=== PATIENT | male | born 1965 | race Caucasian/White ===

== ENCOUNTER 2016-11-05 01:55 | Emergency (ER) | payer OTHER ==
[2016-11-05] MEDS ORDERED: ALBUTEROL SO4 2.5/IPRATROPIUM 0.5 INH SOL 3 ML VIAL.NEB. NEB ONE ×2 (02:07→02:08)
[2016-11-05] MEDS ORDERED: CYCLOBENZAPRINE HCL 10 MG TABLET (FP) PO ONE (02:07)
[2016-11-05] MEDS ORDERED: KETOROLAC TROMETHAMINE 60 MG/2 ML VIAL IM ONE (02:07)
[2016-11-05] MEDS ORDERED: CYCLOBENZAPRINE HCL 10 MG TABLET (FP) ONE (02:08)
[2016-11-05] MEDS ORDERED: KETOROLAC TROMETHAMINE 60 MG/2 ML VIAL ONE (02:08)
--- NOTE | 2016-11-05 02:10 | PDOC ---
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 Patient said that he works at [employer] and one of the residents tried to elope so he chased after him and in chasing after him he said the ground was uneven and he steve his neck and back and now comes in complaining of acute exacerbation of his chronic neck and back pain as well as some difficulty breathing. Patient said that he has asthma and his asthma is causing him to have difficulty breathing. Patient denies any new neurological complaints. Patient did not take anything for that his neck and back pain. PAST MEDICAL HISTORY: no significant history PAST SURGICAL HISTORY: no significant history FAMILY HISTORY: no pertinant history SOCIAL HISTORY: Pt lives with family and is employed. MEDICATIONS: reviewed ALLERGIES: As per nursing notes Review of Systems General: No fevers or chills, no weakness, no weight loss HEENT: No change in vision. No sore throat,. No ear pain CardioVascular: No chest pain or shortness of breath Respiratory+ cough and wheezing Gastrointestinal: no nausea, vomitting, diarrhea or constipation, No rectal bleeding Genitourinary: No dysuria, hematuria, or frequency Musculoskeletal: Neck and back pain Neurologic: No headache, vertigo, dizziness or loss of consciousness Psychiatric: nor depression Skin: No rashes or easy bruising Endocrine: no increased thirst or abnormal weight change Allergic: no skin or latex allergy All other systems reviewed and normal Exam: General: Well-nourished well-developed individual, no acute distress HEENT: Throat: Normal, tonsils normal, no erythema or exudate Neck: Supple, no meningeal signs, no lymphadenopathy Cervical spine: There is pain and tenderness on palpation lateral paraspinal area mid cervical spine. There is decreased range of motion secondary to the pain. Eyes::Pupils equal reactive and round, extraocular motion intact Chest: Nontender to palpation Cardiac: S1-S2 normal, regular rate and rhythm, no murmurs rubs or gallops Respiratory: Mild expiratory wheezing bilateral Abdomen: Soft, nondistended, normal bowel sounds, nontender to palpation diffusely Back: There is bilateral. Spinal spasm of the upper lumbar spine area. There is decreased range of motion secondary to spasm and pain. 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 Patient also came in complaining of exacerbation of his asthma. Patient given a DuoNeb with improvement of his asthma symptoms and Flexeril for his neck and back pain. Patient has pain medication at home that he can take. Patient was told to take the rest of the night off and follow-up with his doctor tomorrow if unable to return to work tomorrow 11/05/16 02:27 Past History - Past Medical History Allergies/Adverse Reactions: Allergies Allergy/AdvReac Type Severity Reaction Status Date / Time No Known Drug Allergies Allergy Verified 11/05/16 01:57 Home Medications: Ambulatory Orders Levothyroxine [Synthroid -] 150 mcg PO DAILY 10/23/11 BUPROPion HCL "SR" [Wellbutrin Sr -] 150 mg PO BID 09/23/13 Losartan Potassium 320 mg PO HS 12/24/15 Metoprolol Succinate [Toprol XL -] 25 mg PO DAILY 07/06/16 Prednisone [Deltasone -] 60 mg PO DAILY #12 tablet 07/09/16 Ranitidine HCl [Zantac] 150 mg PO BID PRN #14 tablet 07/09/16 Cyclobenzaprine HCl [Flexeril -] 10 mg PO TID #21 tablet 11/05/16 Anemia: No Asthma: No Cancer: No Cardiac Disorders: No CVA: No COPD: No CHF: No Dementia: No Diabetes: No GI Disorders: Yes (ACID REFLUX) Disorders: No HTN: Yes Hypercholesterolemia: Yes Liver Disease: No Psychiatric Problems: Yes Seizures: No Thyroid Disease: Yes (HYPO) - Surgical History Abdominal Surgery: No Appendectomy: No Cardiac Surgery: No Cholecystectomy: No Lung Surgery: No Neurologic Surgery: Yes (DISCETOMY TIMES THREE) Orthopedic Surgery: Yes (BILAT UNI-KNEE) - Immunization History Td Vaccination: Yes Immunization Up to Date: Yes - Psycho/Social/Smoking Cessation Hx Anxiety: No Suicidal Ideation: No Smoking Status: No Smoking History: Never smoked Years of Tobacco Use: 0 Have you smoked in the past 12 months: No Number of Cigarettes Smoked Daily: 0 Cigars Per Day: 0 Hx Alcohol Use: No Drug/Substance Use Hx: No Substance Use Type: None Hx Substance Use Treatment: Yes (ALCOHOL/COCAINE 2000) *DC/Admit/Observation/Transfer Diagnosis at time of Disposition: Chronic neck and back pain, Asthma exacerbation - Discharge Dispostion Disposition: HOME Condition at time of disposition: Stable Admit: No - Prescriptions Prescriptions: Cyclobenzaprine HCl [Flexeril -] 10 mg PO TID #21 tablet - Patient Instructions Additional Instructions: Continue to take your pain medications as prescribed.. Take flexeril one tablet 3 times a day as needed for spasm of neck and back. Do not return to work tonight go home and rest. Use your inhaler for your asthma 2 puffs as often as every 4-6 hours as needed. Return to the emergency department immediately with ANY new, persistent or worsening symptoms. Continue any medications as previously prescribed by your physician. You should follow up with your primary doctor as soon as possible regarding today's emergency department visit. . Please make sure your doctor reviews the results of your emergency evaluation. Thank you for coming to the Emergency Department today for your care. It was a pleasure to see you today. Please note that your evaluation is INCOMPLETE until you follow-up with your doctor.
[2016-11-05 02:14] VITALS: BP 118/81; PULSE 100; TEMP 97.8; BMI 41.3
== END 2016-11-05 02:26 | disposition home or self-care (01) ==
LOC: FER 01:55
PROC: 3E0F7GC Introduction of Other Therapeutic Substance into Respiratory Tract, Via Natural or Artificial Opening (ICD-10-PCS; principal; 2016-11-05)
PROC: 3E0233Z Introduction of Anti-inflammatory into Muscle, Percutaneous Approach (ICD-10-PCS; 2016-11-05)
DX: J45.901 Unspecified asthma with (acute) exacerbation (principal); G89.29 Other chronic pain; K21.9 Gastro-esophageal reflux disease without esophagitis; E03.9 Hypothyroidism, unspecified; E78.00 Pure hypercholesterolemia, unspecified; I10 Essential (primary) hypertension
CPT/HCPCS: 99281-25

== ENCOUNTER 2016-12-20 09:05 | Emergency (ER) | payer OTHER ==
[2016-12-20 09:19] VITALS: BP 125/98; PULSE 86; TEMP 97.6; BMI 31.2
[2016-12-20] MEDS ORDERED: KETOROLAC TROMETHAMINE 60 MG/2 ML VIAL IM ONE (09:29)
[2016-12-20] MEDS ORDERED: CYCLOBENZAPRINE HCL 10 MG TABLET (FP) PO ONE (09:29)
[2016-12-20] MEDS ORDERED: KETOROLAC TROMETHAMINE 60 MG/2 ML VIAL ONE (09:32)
[2016-12-20] MEDS ORDERED: CYCLOBENZAPRINE HCL 10 MG TABLET (FP) ONE (09:32)
--- NOTE | 2016-12-20 09:37 | PDOC ---
History of Present Illness - General Chief Complaint: Injury Stated Complaint: S/P FALL, NECK, RT SHOULDER PAIN Time Seen by Provider: 12/20/16 09:19 - History of Present Illness Initial Comments: 12/20/16 09:32 51-year-old male with a past medical history of chronic neck and shoulder issues , mostly right sided He has had 2 C-spine fusions, and occasionally feels like his "neck locks up", but does respond Flexeril Today he was at work, and he slipped and fell on the ice He states he started falling forward, but tried to roll to protect himself, and he landed on his neck and shoulder He denies any head trauma or loss of consciousness, and he is not on any blood thinners He denies any numbness or tingling in his arms or legs He is complaining of neck pain, and right shoulder pain, and right lateral trapezius muscle spasm He denies any other injury He denies any thoracic or lumbar back pain, and he denies any posterior rib pain He denies any other complaints at this time Past History - Past Medical History Allergies/Adverse Reactions: Allergies Allergy/AdvReac Type Severity Reaction Status Date / Time No Known Drug Allergies Allergy Verified 12/20/16 09:10 Home Medications: Ambulatory Orders Levothyroxine [Synthroid -] 150 mcg PO DAILY 10/23/11 BUPROPion HCL "SR" [Wellbutrin Sr -] 150 mg PO BID 09/23/13 Prednisone [Deltasone -] 60 mg PO DAILY #12 tablet 07/09/16 Ranitidine HCl [Zantac] 150 mg PO BID PRN #14 tablet 07/09/16 Cyclobenzaprine HCl [Flexeril -] 10 mg PO TID #21 tablet 11/05/16 Cyclobenzaprine HCl [Flexeril 10 mg] 10 mg PO TID PRN #20 tablet 12/20/16 Oxycodone HCl/Acetaminophen [Percocet 5-325 mg Tablet] 1 tab PO Q6H PRN #10 tablet MDD 3 12/20/16 Anemia: No Asthma: No Cancer: No Cardiac Disorders: No CVA: No COPD: No CHF: No Dementia: No Diabetes: No GI Disorders: Yes (ACID REFLUX) Disorders: No HTN: Yes Hypercholesterolemia: Yes Liver Disease: No Psychiatric Problems: Yes Seizures: No Thyroid Disease: Yes (HYPO) - Surgical History Abdominal Surgery: No Appendectomy: No Cardiac Surgery: No Cholecystectomy: No Lung Surgery: No Neurologic Surgery: Yes Orthopedic Surgery: Yes (BILAT UNI-KNEE) - Immunization History Td Vaccination: Yes Immunization Up to Date: Yes - Psycho/Social/Smoking Cessation Hx Anxiety: No Suicidal Ideation: No Smoking Status: No Smoking History: Never smoked Years of Tobacco Use: 0 Have you smoked in the past 12 months: No Number of Cigarettes Smoked Daily: 0 Cigars Per Day: 0 Hx Alcohol Use: No Drug/Substance Use Hx: No Substance Use Type: None Hx Substance Use Treatment: Yes (ALCOHOL/COCAINE 2000) *Physical Exam - Vital Signs Last Vital Signs Temp Pulse Resp BP Pulse Ox 97.6 F 86 18 125/98 96 12/20/16 09:05 12/20/16 09:05 12/20/16 09:05 12/20/16 09:05 12/20/16 09:05 - Physical Exam Comments: 12/20/16 09:34 Physical exam Last Vital Signs Temp Pulse Resp BP Pulse Ox 97.6 F 86 18 125/98 96 12/20/16 09:05 12/20/16 09:05 12/20/16 09:05 12/20/16 09:05 12/20/16 09:05 Patient is alert and ambulatory and answering questions without difficulty Head is normocephalic and atraumatic There is mild diffuse C-spine tenderness without point tenderness There is no T-spine or LS-spine tenderness There is no posterior rib or CVA tenderness There is right lateral trapezius muscle spasm There is passive full range of motion of the right shoulder There is full range of motion of the left shoulder 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 strength are equal and full in the upper extremity is bilaterally Gait is normal ED Treatment Course - RADIOLOGY Radiology Studies Ordered: Category Date Time Status SPINE-CERVICAL [RAD] Stat Radiology 12/20/16 09:28 Ordered Medical Decision Making - Medical Decision Making 12/20/16 09:36 51-year-old male with fall and injury, with chronic neck and shoulder issues, presents with some neck pain, with mild diffuse tenderness, and right lateral trapezius muscle spasm 12/20/16 11:01 C-spine series as read by me-post surgical changes, with screws at 2 levels (C5- C6, and C6-C7) Severe DJD with disc space narrowing Right shoulder series Chronic DJD Impression-neck spasm and trapezius spasm Patient feeling better after Toradol, Flexeril, and Percocet 12/20/16 12:31 [id number] series as read by radiologist Status post anterior cervical fusion, and artificial discs at C5-C6, and C6-C7 Mild anterior degenerative anterior spondylolisthesis at C4-C5, and C7-T1 No evidence of compression deformities or acute bony abnormalities The predental space is not widened The odontoid is intact *DC/Admit/Observation/Transfer Diagnosis at time of Disposition: Muscle spasms of neck, Neck arthritis, Shoulder strain - Discharge Dispostion Disposition: HOME Condition at time of disposition: Improved - Prescriptions Prescriptions: Cyclobenzaprine HCl [Flexeril 10 mg] 10 mg PO TID PRN #20 tablet PRN Reason: Muscle Spasms Oxycodone HCl/Acetaminophen [Percocet 5-325 mg Tablet] 1 tab PO Q6H PRN #10 tablet MDD 3 PRN Reason: Pain - Referrals Referrals: Chey Multani MD [Primary Care Provider] - - Patient Instructions Additional Instructions: Motrin-every 8 hours-take with food Flexeril-muscle relaxer-every 8 hours Percocet for nighttime pain-this may cause drowsiness Do not drive when taking these medications Warm compresses, rest Followup with your primary care physician in 24-48 hours Return immediately if you worsen in any way Take your medications as directed The x-ray reading is a preliminary reading, if there is any change when the radiologist reads the x-rays you will be called - Post Discharge Activity Work/School Note: Back to Work
[2016-12-20] MEDS ORDERED: OXYCODONE/APAP 5/325MG COMBO TABLET PO ONE (10:25)
[2016-12-20] MEDS ORDERED: OXYCODONE/APAP 5/325MG COMBO TABLET ONE (10:28)
== END 2016-12-20 11:20 | disposition home or self-care (01) ==
LOC: FER 09:05
PROC: 3E0233Z Introduction of Anti-inflammatory into Muscle, Percutaneous Approach (ICD-10-PCS; principal; 2016-12-20)
DX: M62.838 Other muscle spasm (principal); K21.9 Gastro-esophageal reflux disease without esophagitis; I10 Essential (primary) hypertension; E78.00 Pure hypercholesterolemia, unspecified; E03.9 Hypothyroidism, unspecified
CPT/HCPCS: 72050-TC; 73030-TC-RT; 99282-25

== ENCOUNTER 2016-12-27 16:24 | Emergency (ER) | payer OTHER ==
[2016-12-27 16:36] VITALS: BP 143/87; PULSE 83; TEMP 98.7; BMI 30.7
[2016-12-27] MEDS ORDERED: KETOROLAC TROMETHAMINE 60 MG/2 ML VIAL IM ONE (17:10)
[2016-12-27] MEDS ORDERED: predniSONE 20 MG TABLET (UD) PO ONE (17:11)
--- NOTE | 2016-12-27 17:14 | PDOC ---
History of Present Illness - General Chief Complaint: Pain Stated Complaint: neck/right shoulder/right arm pain Time Seen by Provider: 12/27/16 16:32 - History of Present Illness Initial Comments: 12/27/16 17:11 51-year-old male with a past medical history of chronic neck and shoulder issues , mostly right sided He had 2 C-spine fusions, and occasionally feels like his "neck locks up", but does respond Flexeril He was seen on 12/20/16, after slipping and falling on the ice at work He states that he landed on his neck and right shoulder but denied any head trauma He was complaining of severe neck pain at that time, and had x-rays of his right shoulder and neck The C-spine series showed status post anterior cervical fusion, and artificial discs at C5-C6 and C6-C7, and addition to mild anterior degenerative spondylolisthesis at C4-C5, and C7-T1 He was given Toradol, and a prescription for Flexeril and Percocet Patient states that he was not able to get his Flexeril or Percocet, because it was supposed to be paid for by [employer] and it has not been approved yet , so he has not been able to take his Flexeril or Percocet that was prescribed on 12/20/16 He states the pain continues to worsen, and he is having some radiculopathy in this right arm, which he has had in the past He feels like his neck is "locking up" again He denies any weakness in his arms or legs He denies another fall or re-injury to the area He denies any other complaints at this time, and the remainder of the review of systems is negative Past History - Past Medical History Allergies/Adverse Reactions: Allergies Allergy/AdvReac Type Severity Reaction Status Date / Time No Known Drug Allergies Allergy Verified 12/27/16 16:32 Home Medications: Ambulatory Orders Levothyroxine [Synthroid -] 150 mcg PO DAILY 10/23/11 BUPROPion HCL "SR" [Wellbutrin Sr -] 150 mg PO BID 09/23/13 Prednisone [Deltasone -] 60 mg PO DAILY #12 tablet 07/09/16 Ranitidine HCl [Zantac] 150 mg PO BID PRN #14 tablet 07/09/16 Cyclobenzaprine HCl [Flexeril -] 10 mg PO TID #21 tablet 11/05/16 Cyclobenzaprine HCl [Flexeril 10 mg] 10 mg PO TID PRN #20 tablet 12/20/16 Prednisone [Deltasone -] 20 mg PO DAILY #15 tablet 12/27/16 Anemia: No Asthma: No Cancer: No Cardiac Disorders: No CVA: No COPD: No CHF: No Dementia: No Diabetes: No GI Disorders: Yes (ACID REFLUX) Disorders: No HTN: Yes Hypercholesterolemia: Yes Liver Disease: No Psychiatric Problems: Yes Seizures: No Thyroid Disease: Yes (HYPO) - Surgical History Abdominal Surgery: No Appendectomy: No Cardiac Surgery: No Cholecystectomy: No Lung Surgery: No Neurologic Surgery: Yes Orthopedic Surgery: Yes (BILAT UNI-KNEE) - Immunization History Td Vaccination: Yes Immunization Up to Date: Yes - Psycho/Social/Smoking Cessation Hx Anxiety: No Suicidal Ideation: No Smoking Status: No Smoking History: Never smoked Years of Tobacco Use: 0 Have you smoked in the past 12 months: No Number of Cigarettes Smoked Daily: 0 Cigars Per Day: 0 Information on smoking cessation initiated: No Hx Alcohol Use: No Drug/Substance Use Hx: No Substance Use Type: None Hx Substance Use Treatment: Yes (ALCOHOL/COCAINE 2000) *Physical Exam - Vital Signs Last Vital Signs Temp Pulse Resp BP Pulse Ox 98.7 F 83 18 143/87 95 12/27/16 16:34 12/27/16 16:34 12/27/16 16:34 12/27/16 16:34 12/27/16 16:34 - Physical Exam Comments: 12/27/16 17:14 Physical exam Last Vital Signs Temp Pulse Resp BP Pulse Ox 98.7 F 83 18 143/87 95 12/27/16 16:34 12/27/16 16:34 12/27/16 16:34 12/27/16 16:34 12/27/16 16:34 Patient is alert and ambulatory and answering questions without difficulty Head is normocephalic and atraumatic There is mild diffuse C-spine tenderness without point tenderness There is no T-spine or LS-spine tenderness There is no posterior rib or CVA tenderness There is right lateral trapezius muscle spasm There is passive full range of motion of the right shoulder There is full range of motion of the left shoulder 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 and full in the upper extremity is bilaterally Gait is normal Medical Decision Making - Medical Decision Making 12/27/16 18:10 No clinical indication for x-rays at this time, as this is an exacerbation, without a new injury Patient feeling much better after medications, resting comfortably We'll discharge to home on steroid taper, and he will try to get his pain medication that were prescribed for him at his last visit *DC/Admit/Observation/Transfer Diagnosis at time of Disposition: Neck pain, Cervical radiculopathy, Muscle spasms of neck - Discharge Dispostion Disposition: HOME Condition at time of disposition: Improved - Prescriptions Prescriptions: Prednisone [Deltasone -] 20 mg PO DAILY #15 tablet - Referrals Referrals: Angelito Bloom MD [Staff Physician] - Call tomorrow (Neurology-please call for an appointment) Rohan Neri MD [Staff Physician] - Call tomorrow (Orthopedics-please call for an appointment) - Patient Instructions Additional Instructions: Rest, please go to the pharmacy and belt picker your pain medications Prednisone taper as directed Follow-up with neurology, and orthopedics-I am referring you to both Followup with your primary care physician in 24-48 hours Return immediately if you worsen in any way Take your medications as directed - Post Discharge Activity Work/School Note: Back to Work
[2016-12-27] MEDS ORDERED: predniSONE 20 MG TABLET (UD) ONE (17:18)
[2016-12-27] MEDS ORDERED: KETOROLAC TROMETHAMINE 60 MG/2 ML VIAL ONE (17:18)
== END 2016-12-27 18:18 | disposition home or self-care (01) ==
LOC: FER 16:24
PROC: 3E0233Z Introduction of Anti-inflammatory into Muscle, Percutaneous Approach (ICD-10-PCS; principal; 2016-12-27)
DX: M54.2 Cervicalgia (principal); M54.12 Radiculopathy, cervical region; M62.838 Other muscle spasm; K21.9 Gastro-esophageal reflux disease without esophagitis; I10 Essential (primary) hypertension; E78.00 Pure hypercholesterolemia, unspecified; F99 Mental disorder, not otherwise specified; G89.29 Other chronic pain
CPT/HCPCS: 99282-25

== ENCOUNTER 2018-03-07 03:51 | Emergency (ER) | payer OTHER ==
[2018-03-07 04:15] VITALS: BP 135/94; PULSE 80; TEMP 97.8; BMI 30.7
[2018-03-07] MEDS ORDERED: CYCLOBENZAPRINE HCL 10 MG TABLET (FP) PO ONE (04:21)
[2018-03-07] MEDS ORDERED: KETOROLAC TROMETHAMINE 30 MG/1 ML VIAL IM ONE (04:21)
--- NOTE | 2018-03-07 04:22 | PDOC ---
History of Present Illness - General Chief Complaint: Chronic pain Stated Complaint: NECK PAIN Time Seen by Provider: 03/07/18 03:56 History Source: Patient, Old Records Exam Limitations: No Limitations - History of Present Illness Initial Comments: 03/07/18 04:17 52-year-old male with past medical history of spinal fusion at C5-C6 and C6-C7 and multiple orthopedic surgeries presents emergency Department with right lateral neck pain shooting into his shoulder and down his arms. Patient states she was in an accident in October which caused him to have this pain in his neck and his had intermittent pain since that time. Patient denies any reinjury at this time. Patient denies any headaches, blurry vision, dizziness, recent chiropractic or massage therapy. Past History - Past Medical History Allergies/Adverse Reactions: Allergies Allergy/AdvReac Type Severity Reaction Status Date / Time No Known Drug Allergies Allergy Verified 03/07/18 04:09 Home Medications: Ambulatory Orders Bupropion HCl [Wellbutrin Sr] 150 mg PO BID 03/07/18 Duloxetine HCl [Cymbalta -] 60 mg PO HS 03/07/18 Duloxetine HCl [Cymbalta] 30 mg PO AM 03/07/18 Levothyroxine [Synthroid -] 150 mcg PO DAILY 03/07/18 Methocarbamol [Robaxin -] 1,500 mg PO Q8H #30 tablet 03/07/18 Naproxen 250 mg PO QID PRN 03/07/18 Oxycodone HCl/Acetaminophen [Percocet 5-325 mg Tablet] 1 tab PO Q6H PRN Anemia: No Asthma: Yes Cancer: No Cardiac Disorders: No CVA: No COPD: No CHF: No Dementia: No Diabetes: No GI Disorders: Yes (ACID REFLUX) Disorders: No HTN: Yes Hypercholesterolemia: Yes Liver Disease: No Psychiatric Problems: Yes Seizures: No Thyroid Disease: Yes (HYPO) - Surgical History Abdominal Surgery: No Appendectomy: No Cardiac Surgery: No Cholecystectomy: No Lung Surgery: No Neurologic Surgery: Yes Orthopedic Surgery: Yes (BILAT UNI-KNEE) - Immunization History Td Vaccination: Yes Immunization Up to Date: Yes - Suicide/Smoking/Psychosocial Hx Smoking Status: No Smoking History: Never smoked Years of Tobacco Use: 0 Have you smoked in the past 12 months: No Number of Cigarettes Smoked Daily: 0 Cigars Per Day: 0 Hx Alcohol Use: No Drug/Substance Use Hx: No Substance Use Type: None Hx Substance Use Treatment: Yes (ALCOHOL/COCAINE 1999) Review of Systems - Review of Systems Able to Perform ROS?: Yes Is the patient limited [place] proficient: No Constitutional: No: Symptoms Reported HEENTM: Yes: See HPI Respiratory: No: Symptoms reported Cardiac (ROS): No: Symptoms Reported ABD/GI: No: Symptoms Reported : No: Symptoms Reported Musculoskeletal: No: Symptoms Reported Integumentary: No: Symptoms Reported Neurological: No: Symptoms reported Endocrine: No: Symptoms Reported Hematologic/Lymphatic: No: Symptoms Reported *Physical Exam - Vital Signs Last Vital Signs Temp Pulse Resp BP Pulse Ox 97.8 F 80 18 135/94 97 03/07/18 04:09 03/07/18 04:09 03/07/18 04:09 03/07/18 04:03/07/18 04:09 - Physical Exam HEENT: positive: Normal ENT Inspection, TMs Normal Neck: positive: Trachea midline (right lateral paraspinous muscles), Tender lateral Respiratory/Chest: positive: Lungs Clear, Normal Breath Sounds. negative: Respiratory Distress, Accessory Muscle Use Cardiovascular: positive: Regular Rhythm, Regular Rate. 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 I will discharge the patient home with a prescription for Robaxin and instructions to apply warm packs or hot soaks to the affected muscle spasm. Patient verbalizes understanding of discharge instructions. *DC/Admit/Observation/Transfer Diagnosis at time of Disposition: Muscle spasms of neck - Discharge Dispostion Disposition: HOME Condition at time of disposition: Stable Decision to Admit order: No - Prescriptions Prescriptions: Methocarbamol [Robaxin -] 1,500 mg PO Q8H #30 tablet - Referrals Referrals: Hiro Umana MD [Primary Care Provider] - - Patient Instructions Additional Instructions: Rest, no heavy lifting or exercise until pain is resolved Hot soaks to neck and low back as often as possible/hot showers or Jacuzzis No massage or therapy until spasm is gone Continue ibuprofen 2-200 mg tablets every 6 hours for the next 3 days then as needed for pain and swelling Robaxin 1500mg every 8 hours as needed for spasm If not significant improvement within 24 hours with medication and rest regime, followup with private physician for change in medications and /or therapy. - Post Discharge Activity Forms/Work/School Notes: Back to Work
[2018-03-07] MEDS ORDERED: KETOROLAC TROMETHAMINE 30 MG/1 ML VIAL ONE (04:29)
[2018-03-07] MEDS ORDERED: CYCLOBENZAPRINE HCL 10 MG TABLET (FP) ONE (04:29)
== END 2018-03-07 05:34 | disposition home or self-care (01) ==
LOC: JER 03:51
PROC: 3E0233Z Introduction of Anti-inflammatory into Muscle, Percutaneous Approach (ICD-10-PCS; principal; 2018-03-07)
DX: M62.838 Other muscle spasm (principal); J45.909 Unspecified asthma, uncomplicated; K21.9 Gastro-esophageal reflux disease without esophagitis; I10 Essential (primary) hypertension; E78.00 Pure hypercholesterolemia, unspecified; F99 Mental disorder, not otherwise specified; E03.9 Hypothyroidism, unspecified
CPT/HCPCS: 99282-25

== ENCOUNTER 2019-06-03 05:05 | Day surgery (SDC) | payer OTHER ==
[2019-06-02 15:54] VITALS: BMI 32.3
--- NOTE | 2019-06-03 08:13 | HP ---
[facility]ellite [facility] - Chief Complaint Chief Complaint: right shoulder pain History of Present Illness: right shoulder OA History Source: Patient Limitations to Obtaining History: No Limitations - Past Medical History Allergies/Adverse Reactions: Allergies Allergy/AdvReac Type Severity Reaction Status Date / Time No Known Drug Allergies Allergy Verified 06/03/19 07:49 - Current Medications Current Medications: Home Medications Medication Instructions Recorded Bupropion HCl [Wellbutrin Sr] 150 mg PO DAILY 03/07/18 Duloxetine HCl [Cymbalta -] 60 mg PO BID 03/07/18 Dextroamphetamine/Amphetamine 30 mg PO DAILY 06/02/19 [Adderall Xr 30 mg Capsule] Levothyroxine Sodium 137 mcg PO DAILY 06/02/19 Multivitamin [One-Daily 1 each PO DAILY 06/02/19 Multi-Vitamin] Topiramate [Topamax -] 200 mg PO HS 06/02/19 Satellite Physical Exam - Physical Examination Vital Signs: Vital Signs Period Temp Pulse Resp BP Sys/Suarez Pulse Ox Last 24 Hr 97.9 F-97.9 F 83-83 20-20 114-114/71-71 97 General Appearance: Well Nourished ENT: Clear Lung: Clear to auscultation Heart: Regular rate & rhythm Breasts: Soft Abdomen: Soft Extremities: No edema Satellite Impression/Plan - Impression/Plan Impression: right shoulder OA Operative Procedure: right reverse Total Shoulder Replacement Date to be Performed: 06/03/19
[2019-06-03] MEDS ORDERED: BUPIVACAINE HCL/PF 0.5% (5 MG/ML) 30 ML VIAL IJ ONE (08:27)
[2019-06-03] MEDS ORDERED: BUPIVACAINE LIPOSOME/PF (EXPAREL) 266 MG/20 ML VIAL ONE (08:27)
[2019-06-03] MEDS ORDERED: MIDAZOLAM HCL 2 MG/2 ML SINGLE DOSE VIAL ONE ×2 (08:34)
[2019-06-03] MEDS ORDERED: PROPOFOL 20 ML ONE ×2 (09:15→09:26)
[2019-06-03] MEDS ORDERED: ceFAZolin SODIUM 1 GM VIAL IVPB ONE (09:40)
[2019-06-03] MEDS ORDERED: ceFAZolin SODIUM 1 GM VIAL ONE (09:46)
[2019-06-03] MEDS ORDERED: DEXAMETHASONE SOD PHOSPHATE 4 MG/1 ML VIAL ONE (09:46)
[2019-06-03] MEDS ORDERED: ePHEDrine SULFATE 50 MG/1 ML AMPULE ONE (10:00)
--- NOTE | 2019-06-03 11:55 | OP ---
Operative Note - Note: Operative Date: 06/03/19 Pre-Operative Diagnosis: right shoulder OA, and adhesive capsulitis Operation: right Reverse Total Shoulder replacement, Manipulation under anesthesia Implants: Marci Reunion System: size 15 humeral short stem, 36 mm glenosphere , 6mm polyethylene cup, 4mm base plate Surgeon: Cliff Mart Enrichment Specialist: Saleem Thornton Anesthesiologist/SOCIAL SCIENCES DEPARTMENT CHAIR: Maria Ines Gonzales Anesthesia: General, Local Specimens Removed: right humeral head Estimated Blood Loss (mls): 150 Drains, Volume Out (mls): 0 Fluid Volume Replaced (mls): 1,000 Operative Report Dictated: Yes
[2019-06-03] MEDS ORDERED: ONDANSETRON 4 MG/2 ML VIAL IVPUSH PRN (14:11)
[2019-06-03] MEDS: ACETAMINOPHEN 325 MG TABLET (FP) PO SCH ×2 (16:40→20:25)
[2019-06-03] MEDS: oxyCODONE HCL 5 MG TABLET PO PRN ×2 (18:32→22:02)
--- NOTE | 2019-06-03 18:54 | SPEC ---
DATE OF OPERATION: 06/03/2019 DATE OF DICTATION: 06/03/2019 PREOPERATIVE DIAGNOSIS: Severe right shoulder osteoarthritis and adhesive capsulitis. POSTOPERATIVE DIAGNOSIS: Severe right shoulder osteoarthritis and adhesive capsulitis. PROCEDURE: Right shoulder manipulation under anesthesia and reverse total shoulder replacement. SURGEON: Joel Rick M.D. ECONOMIC SPECIALIST: Maribel Rodriguez ANESTHESIOLOGIST: Maria Ines Gonzales D.O. ANESTHESIA: Right interscalene block with LMA anesthesia. DRAINS: None. COMPLICATIONS: None. BLOOD LOSS: 150 mL. BLOOD GIVEN: None. FLUID REPLACEMENT: 1000 mL Plasmalyte. SPECIMENS: Right humeral head. OPERATIVE DETAILS: Total operative time was about 1 hour and 5 minutes. We used the edulio [employer] reverse total shoulder replacement prosthesis and system. Size 15 humeral short stem, a 4-mm baseplate, a 6-mm polyethylene glenoid, and a 36-mm diameter glenosphere. We used 4 screws for fixation in addition to the central screw of 16 through 36 mm in length. Total blood loss was about 150 mL. INDICATIONS: This patient is a 53-year-old right hand dominant male who has significant right shoulder adhesive capsulitis and arthritis. After understanding the potential risks, complications, alternatives and benefits of surgery versus nonsurgical treatment, the patient elected to undergo this procedure. We are hoping to minimize his pain, to maximize his function, but we are not expecting his shoulder to be normal; he understands that. DESCRIPTION OF PROCEDURE: The patient was brought to the operating room, peripheral IV placed, IV sedation given. A right interscalene block was performed. LMA anesthesia was induced. He was placed into the beach-chair position with ample padding throughout. A manipulation under anesthesia was performed. His right shoulder was extremely stiff. I was only able to forward flex and abduct it to about 70 degrees. After the manipulation, I was able to forward flex it and abduct it about 120 degrees. Internal rotation, I was able to get all the way across his body, and external rotation I was able to get to about 50 degrees from about 25 degrees. Overall he was extremely stiff prior to manipulation. He was was prepped and draped in a sterile fashion. A deltopectoral approach incision was marked out using the coracoid and mid aspect of the proximal humerus as landmarks. The incision was made with the No. 15 scalpel blade. Subcutaneous hemostasis was achieved with a Bovie cautery. Dissection was done through the superficial fascia. Blunt dissection was done with my finger in the deltopectoral interval. The cephalic vein was retracted medially. The Gelpi self-retaining retractors were placed into the wound. I found the conjoined tendon off the coracoid and used the Bovie to incise lateral to it. I was then able to cut down to bone and preserve the medial and lateral capsular flaps. The rotator cuff subscapularis was very deficient. I then peeled the soft tissues, including the anterior aspect of the deltoid insertion off the humerus. The biceps tendon was seen to be frayed, degenerated out of its groove, and therefore I did a biceps tenolysis. Appropriate Fukuda and pickle-fork retractors were placed into the wound, exposing the proximal humerus. I was able to easily dislocate it anteriorly. It was extremely arthritic. Next, using the external guide and a broach, I used the oscillating saw to do a cut at the articular margin. Osteophytes were removed with the rongeur. Some soft tissue was removed with the Bovie. I was able to expose the proximal humerus quite well. Next, using the standard technique, using the edulio Reverse Total Shoulder Replacement System, we used first the starting awl and then the sequential hand broaches until we had cortical chatter. Then we used the humeral stem-shape broaches and mallet. We eventually seated a 15-size stem that had excellent cortical contact and was very stable throughout. We did not need to use the calcar reamer as the humeral cut was at the right angle. Next, our attention was turned to the glenoid. The Bovie was used to remove soft tissue, including some capsular attachments and the labrum. Retractors were placed into the wound to retract the humerus and expose the glenoid. With excellent direct visualization, we then put on the glenoid glenosphere, lining it up appropriately and put in the 3.2-mm guidewire. We went through 2 cortices. We then used the guidewire to do the glenoid reamer. We were able to ream the glenoid until we got bleeding subchondral bone. More bone was taken inferiorly than superiorly, but it was concentric. The guidewire was then removed, and we put on the actual 28-mm glenoid baseplate, held it in place with a 28-mm central screw. Then using the typical standard technique, we put in superior, inferior, and posterior screws, which were 28, 28, and 16 mm in length, respectively. We had excellent compression of the glenoid baseplate against the glenoid and overall concentric fit. Next, we put on a 36-mm glenosphere. This was the actual implant, impacted in place, and it was quite stable. Next, our attention was turned to the humerus. We cleaned up the humeral shaft , put in an actual size-15 humeral press-fit porous-coated stem and used the mallet to put it down to the appropriate level. We then trialed the size of the humeral glenosphere, and it ended up being a 36-mm implant. It was extremely stable. In fact, it was very difficult to dislocate. Next, this trial was removed, and the actual 36-mm humeral glenosphere was placed on, it was reduced, and was extremely stable throughout. The area was copiously irrigated and washed out. The capsule was closed anteriorly with several No. 1 Ti-Cron sutures, the deep fascial layer closed with No. 1 Ti- Cron, and the superficial deltoid fascia closed with 0 Vicryl suture. A 2-0 Vicryl was used to close the deep dermal layer, and final skin reapproximation was done with a running subcuticular 3-0 V-Loc suture. The area was then washed and dried, covered with a 10-inch Aquacel dressing. The patient was extubated. There was total blood loss of 150 mL. There were no complications during the case. The shoulder immobilizer was placed in the operating room, and she was brought to the regular recovery room in stable condition. JOEL RICK M.D. [id number]
[2019-06-03] MEDS ORDERED: PT OWN MED DRAWER 7, Y5N ONE (22:00)
[2019-06-03] MEDS: DULoxetine HCL 30 MG CAPSULE.DR PO SCH (22:02)
[2019-06-03] MEDS: TOPIRAMATE 200 MG TABLET (FP) PO SCH (22:36)
[2019-06-04] MEDS: ACETAMINOPHEN 325 MG TABLET (FP) PO SCH ×4 (01:16→21:13)
[2019-06-04] MEDS: oxyCODONE HCL 5 MG TABLET PO PRN ×3 (04:18→14:59)
[2019-06-04] MEDS ORDERED: oxyCODONE HCL 5 MG TABLET PO ONE (05:07)
[2019-06-04] MEDS ORDERED: LEVOTHYROXINE NA 112 MCG TABLET (FP) ONE (06:01)
[2019-06-04] MEDS ORDERED: LEVOTHYROXINE NA 25 MCG TABLET (FP) ONE (06:01)
[2019-06-04] MEDS: LEVOTHYROXINE 112 MCG, LEVOTHYROXINE 25 MCG PO SCH (06:02)
--- NOTE | 2019-06-04 08:37 | PN ---
Progress Note (short form) - Note Progress Note: Ortho Pt seen and examined s/p right reverse TSA pod #1, c/o pain Selected Entries 06/04/19 05:00 Temperature 97.4 F L Pulse Rate 89 Respiratory 18 Rate Blood Pressure 147/70 + swelling, dressing c/d/i, good rom of elbow wrist and hand nvi a/p PT for ROM ROM exercises as tolerated pain control d/c home today f/u in 1 week
[2019-06-04] MEDS: DULoxetine HCL 30 MG CAPSULE.DR PO SCH ×2 (09:34→22:12)
[2019-06-04] MEDS: MULTIVITAMINS (DAILY MVI) TABLET (FP) PO SCH (09:34)
[2019-06-04] MEDS ORDERED: PATIENT'S OWN MEDICATION (NON-FORMULARY) (Dextroamphetamine/Amphetamine [Adderall Xr 30 Mg PO SCH (10:00)
--- NOTE | 2019-06-04 11:02 | PN ---
Progress Note, Physician Chief Complaint: R shoulder pain History of Present Illness: Previous notes and events reviewed awake and alert NAD complain of pain to R arm/shoulder R arm in sling POD #1 R reverse TSA - Current Medication List Current Medications: Active Medications Acetaminophen (Tylenol -) 650 mg PO Q6H [facility] Stop: 06/06/19 14:14 Last Admin: 06/04/19 08:20 Dose: 650 mg Bupropion HCl (Wellbutrin Xl -) 150 mg PO DAILY [facility] Last Admin: 06/04/19 09:34 Dose: 150 mg Duloxetine HCl (Cymbalta -) 60 mg PO BID [facility] Last Admin: 06/04/19 09:34 Dose: 60 mg Levothyroxine Sodium 112 mcg/ (Levothyroxine Sodium 25 mcg) 137 mcg PO DAILY@ 0700 [facility] Last Admin: 06/04/19 06:02 Dose: 137 mcg Multivitamins/Minerals/Vitamin C (Tab-A-Vit -) 1 tab PO DAILY [facility] Last Admin: 06/04/19 09:34 Dose: 1 tab Non-Formulary Medication (Dextroamphetamine/Amphetamine [Adderall Xr 30 Mg Capsule]) 30 mg PO DAILY [facility] Ondansetron HCl (Zofran Injection) 4 mg IVPUSH Q6H PRN PRN Reason: NAUSEA AND/OR VOMITING Last Admin: 06/04/19 10:24 Dose: 4 mg Oxycodone HCl (Roxicodone -) 5 mg PO Q3H PRN PRN Reason: PAIN LEVEL 1-5 Last Admin: 06/04/19 08:19 Dose: 5 mg Topiramate (Topamax -) 200 mg PO [facility] Last Admin: 06/03/19 22:36 Dose: 200 mg - Objective Vital Signs: Vital Signs Temperature 97.4 F L 06/04/19 05:00 Pulse Rate 89 06/04/19 05:00 Respiratory Rate 18 06/04/19 08:27 Blood Pressure 147/70 06/04/19 05:00 O2 Sat by Pulse Oximetry (%) 95 06/04/19 08:27 Constitutional: Yes: No Distress, Calm Eyes: Yes: Conjunctiva Clear HENT: Yes: Atraumatic Cardiovascular: Yes: Regular Rate and Rhythm Respiratory: Yes: Regular, CTA Bilaterally Gastrointestinal: Yes: Normal Bowel Sounds, Soft, Tenderness (mild diffuse tenderness) Musculoskeletal: Yes: Muscle Weakness Extremities: Yes: Other (R arm sling) Neurological: Yes: Alert, Oriented Psychiatric: Yes: Alert, Oriented Problem List - Problems (1) Shoulder strain Assessment/Plan: -POD #1 R reverse TSA -orthopedics on board -pain control -PT -apply ice to R shoulder 20min on/20min off for 1hr q4h -R arm sling Code(s): S46.919A - STRAIN UNSP MUSC/FASC/TEND AT SHLDR/UP ARM, UNSP ARM, INIT Assessment/Plan see problem list dvt ppx
[2019-06-04 12:25] LABS: HEMATOCRIT 42.8 % (35.4-49); HEMOGLOBIN 14.5 GM/dL (11.7-16.9); MCHC 33.9 g/dl (32.0-35.9); MEAN CELL VOLUME 94.4 fl (80-96); MEAN PLT VOLUME 8.1 fl (7.5-11.1); PLATELET COUNT 217 K/MM3 (134-434); RBC 4.53 M/mm3 (4.00-5.60); RDW 13.1 % (11.9-15.9); WHITE BLOOD COUNT 12.1 K/mm3 (4.0-10.0)
[2019-06-04 12:53] LABS: ALBUMIN 3.7 g/dl (3.4-5.0); BILIRUBIN,TOTAL 0.7 mg/dL (0.2-1); BLOOD UREA NITROGEN 12.6 mg/dL (7-18); CALCIUM 8.8 mg/dL (8.5-10.1); CREATININE 1.2 mg/dL (0.55-1.3); POTASSIUM 4.1 mmol/L (3.5-5.1); TOT PROT 6.8 g/dl (6.4-8.2)
--- NOTE | 2019-06-04 15:30 | PN ---
Progress Note (short form) - Note Progress Note: Anesthesiology Post-op POD#1 s/p right shoulder reverse total replacement under interscalene block and GA. Pt. states that he is having pain today which comes and goes but that the arm still feels somewhat numb as well. He is able to move fingers. He has not made an effort to get OOB as he doesn't think that he is able to due to pain. He did not work with PT today. Otherwise, no active issues today or ON. VSS. 53 y.o. man with post-op pain but otherwise stable post-operative course. I did d/w pt. and his spouse the importance of making a good effort to get OOB and move around. He is unmotivated to do so at the moment but may try later.Also discussed taking breaks with the ice pack so as not to aggravate any paresthesia. I also d/w his RN to attempt to get him OOB. Continue further management per primary team.
[2019-06-04] MEDS: TOPIRAMATE 200 MG TABLET (FP) PO SCH (22:13)
[2019-06-05] MEDS: oxyCODONE HCL 5 MG TABLET PO PRN ×2 (01:46→09:04)
[2019-06-05] MEDS: ACETAMINOPHEN 325 MG TABLET (FP) PO SCH ×2 (01:47→09:01)
[2019-06-05] MEDS ORDERED: LEVOTHYROXINE NA 25 MCG TABLET (FP) ONE (06:14)
[2019-06-05] MEDS ORDERED: LEVOTHYROXINE NA 112 MCG TABLET (FP) ONE (06:14)
[2019-06-05] MEDS: LEVOTHYROXINE 112 MCG, LEVOTHYROXINE 25 MCG PO SCH (06:35)
[2019-06-05] MEDS: DULoxetine HCL 30 MG CAPSULE.DR PO SCH (09:02)
[2019-06-05] MEDS: MULTIVITAMINS (DAILY MVI) TABLET (FP) PO SCH (09:02)
--- NOTE | 2019-06-05 09:26 | PN ---
Progress Note (short form) - Note Progress Note: Ortho Pt seen and examined s/p right reverse TSA pod #2, feeling much better today Selected Entries 06/05/19 06:00 Temperature 98.4 F Pulse Rate 88 Respiratory 20 Rate Blood Pressure 131/74 Laboratory Tests 06/04/19 12:08 WBC 12.1 H Hgb 14.5 Hct 42.8 Plt Count 217 D + swelling, dressing c/d/i, good rom of elbow wrist and hand nvi a/p PT for ROM ROM exercises as tolerated pain control d/c home today f/u in 1 week
--- NOTE | 2019-06-05 09:27 | DS ---
Physical Examination Vital Signs: Vital Signs Temperature 98.4 F 06/05/19 06:00 Pulse Rate 88 06/05/19 06:00 Respiratory Rate 20 06/05/19 06:00 Blood Pressure 131/74 06/05/19 06:00 O2 Sat by Pulse Oximetry (%) 95 06/04/19 21:00 Labs: CBC, BMP 06/04/19 12:08 06/04/19 10:28 Discharge Summary Reason For Visit: OSTEOARTHRITIS RIGHT SHOULDER Procedures: Principal: right reverse TSA Hospital Course: admitted for elective right reverse TSA, post-op per protocol, stable for d/c Condition: Good - Instructions Diet, Activity, Other Instructions: Post -op Instruction Sheet - Shoulder Surgery - Sling/Immobilizer : You have been placed in a sling or shoulder immobilizer. As long as you are wearing this, your shoulder is well protected. You may come out of the sling to dress , or do exercises as directed. You may bend and straighten the elbow, and move your wrist and fingers, but DO NOT use your own muscles to move your elbow away from your side until directed to do so. Please sleep with the sling on. You may find it more comfortable to sleep with a small pillow behind your elbow, or in a recliner. To wash your armpit, you may lean slightly forward and let your arm dangle slightly away from your side and wash with a washcloth. - Use an ice bag/pack on the shoulder for 15 minutes every 2 hours. - Pain medication was sent to your Pharmacy. - Keep your dressing clean and dry. Please call the office to make an appointment for 1 week after surgery. Your dressing will be removed at that time. - No Lifting. - Starting 1-2 days after surgery, you may take your arm out of the sling 3 times a day to bend and straighten your elbow and wrist to prevent stiffness. If only an arthroscopy was performed and NO repairs, you may move your shoulder as tolerated. If a rotator cuff/labral repair was performed, DO NOT move your shoulder until instructed by surgeon. - Please call the office at [phone] if there are any questions or concerns. Referrals: Cliff Mart MD [Staff Physician] - Disposition: HOME - Home Medications Comprehensive Discharge Medication List: Ambulatory Orders Bupropion HCl [Wellbutrin Sr] 150 mg PO DAILY 03/07/18 Duloxetine HCl [Cymbalta -] 60 mg PO BID 03/07/18 Dextroamphetamine/Amphetamine [Adderall Xr 30 mg Capsule] 30 mg PO DAILY Levothyroxine Sodium 137 mcg PO DAILY 06/02/19 Multivitamin [One-Daily Multi-Vitamin] 1 each PO DAILY 06/02/19 Topiramate [Topamax -] 200 mg PO HS 06/02/19 Oxycodone HCl/Acetaminophen [Percocet 5-325 mg Tablet -] 1 - 2 tab PO Q6H #50 tab MDD 8 06/03/19
[2019-06-05 11:22] VITALS: BP 125/72; PULSE 95; TEMP 98.6
--- NOTE | 2019-06-11 16:43 | PATH ---
Surgical Pathology Report Patient Name: DAY MCCONNELL Med. Rec. #: [id number] /Age/Gender: 1965 (Age: 53) / M Account: [id number] Location: [facility] SURGICAL Taken: 06/03/2019 Received: 06/03/2019 Reported: 06/11/2019 Physicians: Cliff Mart M.D. Specimen(s) Received RIGHT HUMERAL HEAD Clinical History Right shoulder osteoarthritis Final Diagnosis HUMERAL HEAD, RIGHT, TOTAL SHOULDER REPLACEMENT: DEGENERATIVE JOINT DISEASE. Electronically Signed Olamide Huizar M.D. Gross Description Received in formalin, labeled "right humeral head" is a 5.5 x 5 x 4 cm humeral head. The articular surface appears markedly irregular and shows areas of eburnation and granularity. The resection margin is smooth. Sectioning reveals hard cortical bone. Technical Service Specialist tissue is submitted in one cassette following decalcification. AE/06/05/2019 ebram/06/05/2019
== END 2019-06-05 11:26 | disposition home or self-care (01) ==
LOC: JASU-SURG 05:05 → J6S 14:45 → JASU-SURG 06-05 11:26
PROVIDERS: ATTEND Orthopaedic Surgery
PROC: 0RNJXZZ Release Right Shoulder Joint, External Approach (ICD-10-PCS; 2019-06-03)
PROC: 0RRJ00Z Replacement of Right Shoulder Joint with Reverse Ball and Socket Synthetic Substitute, Open Approach (ICD-10-PCS; principal; 2019-06-03 09:00)
DX: M19.011 Primary osteoarthritis, right shoulder (principal); M75.01 Adhesive capsulitis of right shoulder
CPT/HCPCS: 36415; 73030-TC-RT-FY; 80053; 85027; 88304-TC; 88311-TC; 94760; 97116-GP; 97162-GP

== ENCOUNTER 2019-09-01 13:44 | Inpatient (IN) | payer OTHER ==
[2019-08-31 18:35] VITALS: BMI 31.5
--- NOTE | 2019-09-01 13:58 | HP ---
Satellite [facility] - Chief Complaint Chief Complaint: right shoulder infection, instability - Past Medical History Allergies/Adverse Reactions: Allergies Allergy/AdvReac Type Severity Reaction Status Date / Time No Known Drug Allergies Allergy Verified 06/03/19 07:49 - Current Medications Current Medications: Home Medications Medication Instructions Recorded Bupropion HCl [Wellbutrin Sr] 150 mg PO DAILY 03/07/18 Duloxetine HCl [Cymbalta -] 60 mg PO BID 03/07/18 Dextroamphetamine/Amphetamine 30 mg PO DAILY 06/02/19 [Adderall Xr 30 mg Capsule] Levothyroxine Sodium 137 mcg PO DAILY 06/02/19 Multivitamin [One-Daily 1 each PO DAILY 06/02/19 Multi-Vitamin] Topiramate [Topamax -] 200 mg PO HS 06/02/19 Simvastatin [Zocor -] 40 mg PO HS 08/31/19 Satellite Physical Exam - Physical Examination General Appearance: Well Nourished, Well Developed, Alert & Oriented x3 ENT: Clear Lung: Normal air movement Extremities: Other (right shoulder- + swelling, + erythema, limited ROM , nvi) Neurological: Intact, Alert, Oriented Satellite Impression/Plan - Impression/Plan Impression: right shoulder infection s/p reverse TSA Operative Procedure: right shoulder I&D, possible poly exchange Date to be Performed: 09/01/19
[2019-09-01] MEDS ORDERED: DEXAMETHASONE SOD PHOSPHATE/PF 10 MG/ML SDV ONE (14:59)
[2019-09-01] MEDS ORDERED: LIDOCAINE HCL 2% (20ML MULTI-DOSE VIAL) ONE (15:00)
[2019-09-01] MEDS ORDERED: BUPIVACAINE HCL/PF 0.5% (5 MG/ML) 30 ML VIAL IJ ONE (15:00)
[2019-09-01] MEDS ORDERED: MIDAZOLAM HCL 2 MG/2 ML SINGLE DOSE VIAL ONE (15:01)
[2019-09-01 15:03] LABS: BASO % 1.1 % (0-2.0); EOS % 2.9 % (0-4.5); HEMATOCRIT 40.7 % (35.4-49); HEMOGLOBIN 13.5 GM/dL (11.7-16.9); MCH 29.4 pg (25.7-33.7); MCHC 33.2 g/dl (32.0-35.9); MEAN CELL VOLUME 88.6 fl (80-96); MEAN PLT VOLUME 7.9 fl (7.5-11.1); PLATELET COUNT 228 K/MM3 (134-434); RBC 4.59 M/mm3 (4.00-5.60); RDW 13.8 % (11.9-15.9); WHITE BLOOD COUNT 4.5 K/mm3 (4.0-10.0)
[2019-09-01] MEDS ORDERED: KETOROLAC TROMETHAMINE 30 MG/1 ML VIAL ONE (15:33)
[2019-09-01] MEDS ORDERED: SODIUM CHLORIDE 0.9% P/F 10 ML VIAL IJ ONE (15:33)
[2019-09-01] MEDS ORDERED: ceFAZolin SODIUM 1 GM VIAL ONE ×2 (15:33→16:01)
[2019-09-01] MEDS ORDERED: LIDOCAINE HCL/PF 2% SDV 5ML VIAL ONE (15:33)
[2019-09-01] MEDS ORDERED: DEXAMETHASONE SOD PHOSPHATE 4 MG/1 ML VIAL ONE (15:33)
[2019-09-01] MEDS ORDERED: PROPOFOL 20 ML ONE (15:33)
[2019-09-01] MEDS ORDERED: oxyCODONE HCL 5 MG TABLET PO PRN (15:41)
[2019-09-01] MEDS ORDERED: ONDANSETRON 4 MG/2 ML VIAL IVPUSH PRN (15:41)
[2019-09-01] MEDS ORDERED: EPHEDRINE SULFATE/0.9% NACL/PF 50 MG/10 ML SYRINGE NR ONE (15:56)
[2019-09-01] MEDS ORDERED: ceFAZolin SODIUM 1 GM VIAL IVPB ONE (16:16)
[2019-09-01] MEDS ORDERED: VANCOMYCIN 1,000 MG VIAL (RESTRICTED TO ID ONLY) ONE (16:27)
--- NOTE | 2019-09-01 17:12 | OP ---
Operative Note - Note: Operative Date: 09/01/19 ([facility]) Pre-Operative Diagnosis: right shoulder infection s/p reverse TSA Operation: right shoulder I&D, poly exchange Post-Operative Diagnosis: Same as Pre-op Surgeon: Cliff Mart Steersman: Saleem Thornton Anesthesiologist/SURFACE LAY OUT TECHNICIAN: Dinesh Rodriguez Anesthesia: General, Local Specimens Removed: cultures, specimen, poly and base plate Estimated Blood Loss (mls): 200 Operative Report Dictated: Yes
--- NOTE | 2019-09-01 18:09 | OP ---
DATE OF OPERATION: 09/01/2019 PREOPERATIVE DIAGNOSIS: Right shoulder infection status post right total shoulder replacement. POSTOPERATIVE DIAGNOSIS: Right shoulder infection status post right total shoulder replacement. PROCEDURES: 1. Right shoulder open incision and drainage. 2. Reverse total shoulder replacement polyethylene exchange. 3. Anterior capsular plication. SURGEON: Joel Rick MD MEASUREMENT PSYCHOLOGIST: MARIA ELENA Rodriguez ANESTHESIA: Dinesh Rodriguez CRNA, right interscalene block, LMA anesthesia. DRAINS: None. COMPLICATIONS: None. SPECIMEN: Two culture sticks from the superficial wound with soft tissue and 2 culture sticks from the deep joint with soft tissue. BLOOD LOSS: 100 mL. BLOOD GIVEN: None. FLUID REPLACEMENT: 1000 mL Plasma-Lyte, 2 g of Ancef were given. INDICATIONS: This patient is a 53-year-old male with a preoperative diagnosis of right shoulder reverse total shoulder replacement 12 weeks ago. He came into the office yesterday and looked like he developed a superficial infection. We were able to aspirate about 3 mL of pus from the superficial abscess and sent it to the lab for characterization. Those results are not back yet. The decision was made to protect the total shoulder replacement prosthesis and to get it early to take him to the operating room for an open incision and drainage of at least the superficial abscess and then wash out the joint to do a polyethylene exchange. At the same time, I would assess the glenoid component, Glenosphere, and humeral component. The patient understands the potential risks, complications, alternatives, benefits to surgery versus nonsurgical treatment. He understands the potential long-term risks and complications as well. DESCRIPTION OF PROCEDURE: The patient was brought to the operating room. Peripheral IV placed. IV sedation given. No IV anesthesia was given yet until after the cultures. Right interscalene block was performed. He was placed into the beach chair position. After LMA anesthesia was induced, right upper extremity prepped and draped in sterile fashion. A No. 15 scalpel blade was utilized to cut down through the skin of the anterior deltopectoral incision, which was already there. After cutting through the very superficial dermal layer, no pus was evacuated. I then dissected deeper with both the knife and the Metzenbaum scissors, and genoveva pus was evacuated. Two culture sticks were sent off with a small amount of fibrinous material. The area was irrigated and washed out. I continued my dissection further down. There was no continuation of the actual pocket, but there was a small, approximately 4-mm around, sinus tract that did seem to go from this pocket down to the anterior aspect of the joint. The rest of the anterior structures were seen to be quite stable, intact, solid, and thick. There was no soft tissue destruction from the likely bacterial infection. The superficial tissue was further washed out with saline infused with Kefzol. Weitlaner retractors were placed deep into the wound. I did a blunt dissection with my finger. Again, the tissue layers did not just fall apart as they do sometimes. At this time, I needed to do sharp dissection down through the deltopectoral interval to the anterior aspect of the capsule. This layer was then copiously irrigated and washed out as well. Deeper retractors were placed into the wound. The anterior capsule was completely intact. I cut through it in a longitudinal fashion with the Bovie cautery and grabbed the edges with the Kochers for later identification and repair. The capsule was intact, quite thick, and did not look like it was destroyed by any type of bacterial infection. Next, the joint was washed out. There was no pus to be evacuated. Overall, the joint looked quite good. There was some fibrinous material as expected postoperatively. This was removed. Two deep culture sticks specimen were sent from fluid around the prosthesis with a small amount of fibrinous material as well. The area was copiously irrigated and washed out. There was a question of an anterior dislocation about 2 weeks ago; however, it was very difficult to dislocate the prosthesis. While the entire anterior capsule was violated, it was open, and I had the shoehorn device in between the glenoid and humeral component. Still, it was extremely difficult to dislocate the joint. Therefore, I do not think that he had a recent anterior dislocation, and even if he did, there would be no way he would be able to reduce it on his own without going back to the operating room. Before the prosthesis was reduced, I put in 1 g of vancomycin powder in and around the prosthesis as well as into the joint itself, and then to get the new prosthesis in, we did use a mallet and impactor and tapped it into place with a Martinez taper. I was able to dislocate it with the shoehorn finally. I then used the fork device and tapped out the 4-mm metal base plate and polyethylene component. Still, there was no pus, no fibrinous material around the base of this material. Some fibrinous material was removed. The area was copiously irrigated and washed out including the exposed prosthesis, behind the prosthesis, the joint itself with over 2 L of fluid with the pulse lavage infused with Kefzol. It all looked quite well before, during, and after the open incision and drainage. I think the prosthesis is fine. It is stable. Next, I put in another new 4-mm base plate with a 6-mm, this time constrained, polyethylene humeral cup. I was able to get it back in, but again, there was a little bit of difficulty when using the shoehorn and directly pushing on it. That being said, it came together quite nicely. There was excellent range of motion. It was not overstuffed or loose. After another irrigation and wash out, I used No. 1 Vicryl suture to close the anterior capsule and do an anterior capsular plication just in case there was any previous anterior instability. It came together quite nicely, and this soft tissue layer was very thick. I then closed the deltoid and the deltoid fascia and another 2 independent layers. The area was irrigated and washed out again. We closed the deep dermal layer with 2-0 Vicryl, and final skin reapproximation was done with pearl. The area was then washed and dried, covered with an Aquacel dressing. He was placed into a shoulder immobilizer. Total operative time was only about 45 minutes. There were no complications during the case. The patient tolerated the procedure well and was brought to the regular recovery room in stable condition. Dr. Tristin Álvarez from Infectious Disease will also help with this case. Likely the patient will get a PICC line in 6 weeks of IV antibiotics. We will wait for some of these cultures to come back as well. JOEL RICK M.D. [id number]
--- NOTE | 2019-09-01 21:30 | PN ---
Progress Note (short form) - Note Progress Note: ID CONSULT DICTATED S/P I&D INFECTED R SHOULDER S/P SHOULDER REPLACEMENT AWAIT C/S START EMPIRIC VANCOMYCIN/ CEFEPIME
[2019-09-01] MEDS ORDERED: DULoxetine HCL 60 MG CAPSULE.DR PO SCH (22:00)
[2019-09-01] MEDS: CEFEPIME 2 GM in DEXTROSE 5%-WATER 100 ML IVPB SCH (22:50)
[2019-09-01] MEDS: LACTATED RINGERS SOLUTION 1,000 ML IV SCH (22:50)
[2019-09-01] MEDS: TOPIRAMATE 200 MG TABLET (FP) PO SCH (23:12)
[2019-09-01] MEDS: ATORVASTATIN CA 20 MG TABLET (FP) PO SCH (23:12)
[2019-09-01] MEDS: DULoxetine HCL 30 MG CAPSULE.DR PO SCH (23:13)
[2019-09-02] MEDS ORDERED: ceFAZolin 2 GRAM PREMIX BAG IVPB SCH (00:01)
[2019-09-02] MEDS: VANCOMYCIN 1,250 MG in DEXTROSE 5%-WATER - 250 ML IVPB SCH ×3 (00:45→21:40)
[2019-09-02] MEDS: oxyCODONE HCL 5 MG TABLET PO PRN ×5 (02:01→22:29)
[2019-09-02] MEDS: CEFEPIME 2 GM in DEXTROSE 5%-WATER 100 ML IVPB SCH ×3 (04:41→18:30)
[2019-09-02] MEDS: LACTATED RINGERS SOLUTION 1,000 ML IV SCH ×2 (04:42→16:58)
[2019-09-02] MEDS ORDERED: LEVOTHYROXINE NA 25 MCG TABLET (FP) ONE (06:30)
[2019-09-02] MEDS ORDERED: LEVOTHYROXINE NA 112 MCG TABLET (FP) ONE (06:30)
[2019-09-02] MEDS: LEVOTHYROXINE 112 MCG, LEVOTHYROXINE 25 MCG PO SCH (06:35)
[2019-09-02] MEDS: MULTIVITAMINS (DAILY MVI) TABLET (FP) PO SCH (09:33)
[2019-09-02] MEDS ORDERED: PT OWN MED DRAWER 7, Y5N ONE ×2 (09:36→18:02)
[2019-09-02] MEDS: DULoxetine HCL 30 MG CAPSULE.DR PO SCH ×2 (09:37→22:27)
[2019-09-02] MEDS ORDERED: PATIENT'S OWN MEDICATION (NON-FORMULARY) (Dextroamphetamine/Amphetamine [Adderall Xr 30 Mg PO SCH (10:00)
--- NOTE | 2019-09-02 12:47 | PN ---
Progress Note (short form) - Note Progress Note: Pt seen and examined. He is on POD #1 s/p right shoulder open I&D, joint wash out, insertion of Vancomycin antibiotic powder, and polyethylene exchange surgery. He has some pain, not severe. Overall he feels quite good. AVSS All cultures still pending. PE RUE is NVI. Excellent ROM of the right elbow, forearm, wrist, fingers. Dressing with minimal drainage. Shoulder and arm not swollen, no ecchymosis. Imp POd #1 doing very well. Rec Antibiotic plan as per ID, Dr Álvarez. Likely PICC Line and 6 weeks of IV antibiotics, but pending culture results. NTD orthopedically at this time. No P.T. He can be DC'd home once DC'd by ID.
--- NOTE | 2019-09-02 13:41 | PN ---
Progress Note (short form) - Note Progress Note: I spoke with ID. We are awaiting culture results. The plan is that he will stay in the hospital until the cultures are back, guiding antibiotic treatment. Until then he will continue on IV antibiotics in the hospital. Likely he will get a PICC line saturday, and then be discharged saturday or saturday with the appropriate antibiotic regimen. As far as the right arm is concerned, he has no restrictions as far as motion of the elbow, forearm, wrist, fingers. He can move the right shoulder a little, but should stay in the immobilizer.
[2019-09-02] MEDS: KETOROLAC TROMETHAMINE 30 MG/1 ML VIAL IVPUSH SCH ×2 (16:08→21:31)
[2019-09-02] MEDS: ATORVASTATIN CA 20 MG TABLET (FP) PO SCH (22:27)
[2019-09-02] MEDS: TOPIRAMATE 200 MG TABLET (FP) PO SCH (22:27)
[2019-09-03] MEDS: CEFEPIME 2 GM in DEXTROSE 5%-WATER 100 ML IVPB SCH ×3 (01:14→19:03)
[2019-09-03] MEDS: KETOROLAC TROMETHAMINE 30 MG/1 ML VIAL IVPUSH SCH ×2 (03:22→11:07)
[2019-09-03] MEDS: LACTATED RINGERS SOLUTION 1,000 ML IV SCH ×3 (04:13→19:01)
[2019-09-03] MEDS ORDERED: LEVOTHYROXINE NA 25 MCG TABLET (FP) ONE (05:07)
[2019-09-03] MEDS ORDERED: LEVOTHYROXINE NA 112 MCG TABLET (FP) ONE (05:07)
[2019-09-03] MEDS: LEVOTHYROXINE 112 MCG, LEVOTHYROXINE 25 MCG PO SCH (06:32)
[2019-09-03 08:35] LABS: BASO % 1.6 % (0-2.0); EOS % 1.6 % (0-4.5); HEMATOCRIT 34.9 % (35.4-49); HEMOGLOBIN 11.5 GM/dL (11.7-16.9); LYMPH % 30.2 % (8-40); MCH 29.3 pg (25.7-33.7); MCHC 32.9 g/dl (32.0-35.9); MEAN CELL VOLUME 89.2 fl (80-96); MEAN PLT VOLUME 8.8 fl (7.5-11.1); MONO % 16.7 % (3.8-10.2); NEUT % 49.9 % (42.8-82.8); PLATELET COUNT 193 K/MM3 (134-434); RBC 3.91 M/mm3 (4.00-5.60); RDW 13.8 % (11.9-15.9)
[2019-09-03 08:52] LABS: WHITE BLOOD COUNT 6.1 K/mm3 (4.0-10.0)
[2019-09-03 09:17] LABS: ALBUMIN 2.7 g/dl (3.4-5.0); BILIRUBIN,TOTAL 0.2 mg/dL (0.2-1); BLOOD UREA NITROGEN 18.3 mg/dL (7-18); CALCIUM 8.3 mg/dL (8.5-10.1); POTASSIUM 4.4 mmol/L (3.5-5.1); TOT PROT 5.8 g/dl (6.4-8.2)
[2019-09-03 10:51] LABS: PLATELET ESTIMATE NORMAL
[2019-09-03] MEDS ORDERED: PT OWN MED DRAWER 7, Y5N ONE ×3 (10:53→19:00)
[2019-09-03] MEDS: MULTIVITAMINS (DAILY MVI) TABLET (FP) PO SCH (11:03)
[2019-09-03] MEDS: DULoxetine HCL 30 MG CAPSULE.DR PO SCH ×2 (11:04→21:41)
[2019-09-03] MEDS: VANCOMYCIN 1,250 MG in DEXTROSE 5%-WATER - 250 ML IVPB SCH ×2 (12:37→21:42)
--- NOTE | 2019-09-03 14:43 | PN ---
Progress Note, Physician History of Present Illness: AWAKE, ALERT SEATED IN BED NO COMPLAINTS AFEBRILE CULTURES PENDING - Current Medication List Current Medications: Active Medications Atorvastatin Calcium (Lipitor -) 20 mg PO HS [facility] Last Admin: 09/02/19 22:27 Dose: 20 mg Bupropion HCl (Wellbutrin Xl -) 150 mg PO DAILY [facility] Last Admin: 09/03/19 11:03 Dose: 150 mg Duloxetine HCl (Cymbalta -) 60 mg PO BID [facility] Last Admin: 09/03/19 11:04 Dose: 60 mg Fentanyl (Sublimaze Injection -) 50 mcg IVPUSH [id number] PRN PRN Reason: PAIN-PACU ORDER X 4 DOSES ONLY Lactated Ringer's (Lactated Ringers Solution) 1,000 mls @ 125 mls/hr IV ASDIR [facility] Last Admin: 09/03/19 14:39 Dose: 125 mls/hr Vancomycin HCl 1,250 mg/ (Dextrose) 250 mls @ 166.667 mls/hr IVPB Q12H [facility]; Protocol Last Admin: 09/03/19 12:37 Dose: 166.667 mls/hr Cefepime HCl 2 gm/ Dextrose 100 mls @ 200 mls/hr IVPB Q8H-IV [facility]; Protocol Last Admin: 09/03/19 11:03 Dose: 200 mls/hr Levothyroxine Sodium 112 mcg/ (Levothyroxine Sodium 25 mcg) 137 mcg PO DAILY@ 0700 [facility] Last Admin: 09/03/19 06:32 Dose: 137 mcg Multivitamins/Minerals/Vitamin C (Tab-A-Vit -) 1 tab PO DAILY [facility] Last Admin: 09/03/19 11:03 Dose: 1 tab Non-Formulary Medication (Dextroamphetamine/Amphetamine [Adderall Xr 30 Mg Capsule]) 30 mg PO DAILY [facility] Ondansetron HCl (Zofran Injection) 4 mg IVPUSH Q6H PRN PRN Reason: NAUSEA AND/OR VOMITING Oxycodone HCl (Roxicodone -) 5 mg PO Q4H PRN PRN Reason: PAIN LEVEL 7 - 10 Last Admin: 09/02/19 22:29 Dose: 5 mg Topiramate (Topamax -) 200 mg PO HS [facility] Last Admin: 09/02/19 22:27 Dose: 200 mg - Objective Vital Signs: Vital Signs Temperature 98.5 F 09/03/19 06:30 Pulse Rate 82 09/03/19 11:50 Respiratory Rate 20 09/03/19 06:30 Blood Pressure 125/74 09/03/19 11:50 O2 Sat by Pulse Oximetry (%) 96 09/02/19 21:22 Constitutional: Yes: No Distress Cardiovascular: Yes: Regular Rate and Rhythm, S1, S2 Respiratory: Yes: CTA Bilaterally Edema: No Labs: CBC, BMP 09/03/19 07:54 09/03/19 07:54 Assessment/Plan S/P I&D R SHOULDER AWAIT C/S CONTINUE VANCOMYCIN CEFEPIME
[2019-09-03] MEDS: oxyCODONE HCL 5 MG TABLET PO PRN (21:06)
[2019-09-03] MEDS: ATORVASTATIN CA 20 MG TABLET (FP) PO SCH (21:41)
[2019-09-03] MEDS: TOPIRAMATE 200 MG TABLET (FP) PO SCH (21:41)
[2019-09-04] MEDS: CEFEPIME 2 GM in DEXTROSE 5%-WATER 100 ML IVPB SCH ×2 (01:39→12:50)
[2019-09-04] MEDS: oxyCODONE HCL 5 MG TABLET PO PRN ×2 (02:47→08:40)
[2019-09-04] MEDS ORDERED: LEVOTHYROXINE NA 112 MCG TABLET (FP) ONE (04:24)
[2019-09-04] MEDS ORDERED: LEVOTHYROXINE NA 25 MCG TABLET (FP) ONE (04:24)
[2019-09-04] MEDS: LEVOTHYROXINE 112 MCG, LEVOTHYROXINE 25 MCG PO SCH (06:01)
[2019-09-04] MEDS: MULTIVITAMINS (DAILY MVI) TABLET (FP) PO SCH (09:42)
[2019-09-04] MEDS ORDERED: PT OWN MED DRAWER 7, Y5N ONE ×2 (09:43→12:46)
[2019-09-04] MEDS: DULoxetine HCL 30 MG CAPSULE.DR PO SCH (09:43)
[2019-09-04] MEDS: VANCOMYCIN 1,250 MG in DEXTROSE 5%-WATER - 250 ML IVPB SCH (13:44)
[2019-09-04 15:05] VITALS: BP 147/64; PULSE 87; TEMP 98.2
--- NOTE | 2019-09-04 15:22 | PN ---
Progress Note (short form) - Note Progress Note: Pt seen and examined. He is doing well, is comfortable, has min c/o pain. Has L arm PICC line. On IV antibiotics. AVSS Blood cultures are negative at 48 hours Would cultures are negative at 24 hours RUE is NVI, excellent, pain free motion at the right elbow, forearm, wrist, fingers and thumb. R shoulder dressing has a little sanguinous discharge, no cellulitis. Overall doing very well. Plan is to likely DC home today once at home antibiotics are approved. He will f/u with me next week.
--- NOTE | 2019-09-04 16:02 | PN ---
Progress Note, Physician History of Present Illness: AWAKE, ALERT SEATED IN BED NO COMPLAINTS AFEBRILE CULTURES PRELIM NO GROWTH - Current Medication List Current Medications: Active Medications Atorvastatin Calcium (Lipitor -) 20 mg PO HS [facility] Last Admin: 09/03/19 21:41 Dose: 20 mg Bupropion HCl (Wellbutrin Xl -) 150 mg PO DAILY [facility] Last Admin: 09/04/19 09:42 Dose: 150 mg Duloxetine HCl (Cymbalta -) 60 mg PO BID [facility] Last Admin: 09/04/19 09:43 Dose: 60 mg Fentanyl (Sublimaze Injection -) 50 mcg IVPUSH [id number] PRN PRN Reason: PAIN-PACU ORDER X 4 DOSES ONLY Vancomycin HCl 1,250 mg/ (Dextrose) 250 mls @ 166.667 mls/hr IVPB Q12H [facility]; Protocol Last Admin: 09/04/19 13:44 Dose: 166.667 mls/hr Cefepime HCl 2 gm/ Dextrose 100 mls @ 200 mls/hr IVPB Q8H-IV [facility]; Protocol Last Admin: 09/04/19 12:50 Dose: 200 mls/hr Levothyroxine Sodium 112 mcg/ (Levothyroxine Sodium 25 mcg) 137 mcg PO DAILY@ 0700 [facility] Last Admin: 09/04/19 06:01 Dose: 137 mcg Multivitamins/Minerals/Vitamin C (Tab-A-Vit -) 1 tab PO DAILY [facility] Last Admin: 09/04/19 09:42 Dose: 1 tab Non-Formulary Medication (Dextroamphetamine/Amphetamine [Adderall Xr 30 Mg Capsule]) 30 mg PO DAILY [facility] Ondansetron HCl (Zofran Injection) 4 mg IVPUSH Q6H PRN PRN Reason: NAUSEA AND/OR VOMITING Oxycodone HCl (Roxicodone -) 5 mg PO Q4H PRN PRN Reason: PAIN LEVEL 7 - 10 Last Admin: 09/04/19 08:40 Dose: 5 mg Topiramate (Topamax -) [address] [facility] Last Admin: 09/03/19 21:41 Dose: 200 mg - Objective Vital Signs: Vital Signs Temperature 98.2 F 09/04/19 15:03 Pulse Rate 87 09/04/19 15:03 Respiratory Rate 20 09/04/19 15:03 Blood Pressure 147/64 09/04/19 15:03 O2 Sat by Pulse Oximetry (%) 96 09/03/19 09:00 Constitutional: Yes: No Distress Eyes: Yes: Conjunctiva Clear Cardiovascular: Yes: Regular Rate and Rhythm Respiratory: Yes: CTA Bilaterally Gastrointestinal: Yes: Normal Bowel Sounds, Soft, Abdomen, Obese. No: Tenderness Extremities: Yes: Other (R SHOULDER WITH DRESSING IN PLACE) Labs: CBC, BMP 09/03/19 07:54 09/03/19 07:54 Assessment/Plan S/P I&D R SHOULDER C/S PENDING MICROLAB INSTRUCTED TO HOLD C/S FOR P ACNES PICC PLACED CONTINUE OUTPATIENT ANTIBIOTICS THERAPY WITH VANCOMYCIN 1250MG IVPB Q12H + CEFEPIME 2GM IVPB Q12H X 6W
--- NOTE | 2019-09-04 18:57 | PATH ---
Surgical Pathology Report Patient Name: DAY MCCONNELL Med. Rec. #: [id number] /Age/Gender: 1965 (Age: 53) / M Account: [id number] Location: [address] [place] [address]/[facility] Taken: 09/02/2019 Received: 09/02/2019 Reported: 09/04/2019 Physicians: Cliff Mart M.D. Specimen(s) Received IMPALNT FREOM RIGHT SHOULDER Clinical History Right shoulder infection Final Diagnosis HARDWARE RIGHT SHOULDER, REMOVAL: CONSISTENT WITH HARDWARE. GROSS EXAMINATION ONLY. Electronically Signed Leonora Vasquez M.D. Gross Description Received fresh labeled "hardware right shoulder," is a 4.0 cm in diameter x 3.2 cm in length white plastic and day metallic portion of hardware. No soft tissue is present. No sections are submitted, gross only. /09/02/2019 saudi/09/02/2019
== END 2019-09-04 16:00 | disposition home or self-care (01) | DRG 322 ==
LOC: JASU-SURG 13:44 → JSAMEDAYSX 15:38 → J5S 18:29 → JSAMEDAYSX 09-04 16:55 → J5S 09-04 17:00
PROVIDERS: ADMIT Orthopaedic Surgery; ATTEND Orthopaedic Surgery
PROC: 0RRJ0JZ Replacement of Right Shoulder Joint with Synthetic Substitute, Open Approach (ICD-10-PCS; 2019-09-01)
PROC: 0RPJ0JZ Removal of Synthetic Substitute from Right Shoulder Joint, Open Approach (ICD-10-PCS; 2019-09-01)
PROC: 0J9D0ZZ Drainage of Right Upper Arm Subcutaneous Tissue and Fascia, Open Approach (ICD-10-PCS; principal; 2019-09-01 15:30)
PROC: 02HV33Z Insertion of Infusion Device into Superior Vena Cava, Percutaneous Approach (ICD-10-PCS; 2019-09-04)
PROC: B518ZZA Fluoroscopy of Superior Vena Cava, Guidance (ICD-10-PCS; 2019-09-04)
DX: T84.59XA Infection and inflammatory reaction due to other internal joint prosthesis, initial encounter (principal); Y83.8 Other surgical procedures as the cause of abnormal reaction of the patient, or of later complication, without mention of misadventure at the time of the procedure; E66.8 Other obesity; Z68.31 Body mass index [BMI] 31.0-31.9, adult; Z96.611 Presence of right artificial shoulder joint; K21.9 Gastro-esophageal reflux disease without esophagitis
CPT/HCPCS: 36415; 36569; 77001-TC-FY; 80053; 85025; 87040; 87070; 87205; 88300-TC; 94760; C1751